=== PATIENT | female | born 1990 | race Caucasian/White ===

== ENCOUNTER 2017-12-01 18:30 | Emergency (ER) | payer MEDICAID, OTHER ==
[~2017-12-01] VITALS: Ht 160 cm; Wt 83.8 kg
[2017-12-01 18:38] VITALS: BP 158/102
[2017-12-01] MEDS ORDERED: normal saline 1000ML IV soln IVB ONE (19:00)
[2017-12-01] MEDS ORDERED: ondansetron/PF 4mg/2ml inj IV ONE (19:00)
[2017-12-01 19:14] LABS: BASOPHILS % (AUTO) 0.4 % (0-1); EOSINOPHILS # (AUTO) 0.2 X10'3 (0-0.9); EOSINOPHILS % (AUTO) 1.6 % (0-6); HEMATOCRIT 38.1 % (35.0-45.0); LYMPHOCYTES # (AUTO) 3.4 X10'3 (1.1-4.8); LYMPHOCYTES % (AUTO) 35.5 % (21-51); MEAN CORPUSCULAR HEMOGLOBIN 28.8 PG (27.0-31.0); MEAN CORPUSCULAR HGB CONC 34.2 % (33.0-36.5); MEAN CORPUSCULAR VOLUME 84.2 FL (78-98); MEAN PLATELET VOLUME 7.8 FL (7.4-10.4); MONOCYTES # (AUTO) 0.8 X10'3 (0-0.9); MONOCYTES % (AUTO) 8.5 % (2-12); NEUTROPHILS # (AUTO) 5.1 X10'3 (1.8-7.7); PLATELET COUNT 424 X10'3 (140-440); RED BLOOD COUNT 4.52 X10'6 (4.20-5.60); WHITE BLOOD COUNT 9.5 X10'3 (4.5-11.0)
[2017-12-01 19:22] LABS: PROTHROMBIN TIME 10.2 SECONDS (9.0-12.0)
[2017-12-01 19:26] LABS: ALANINE AMINOTRANSFERASE 146 U/L (12-78); ALBUMIN 3.8 G/DL (3.4-5.0); ALBUMIN/GLOBULIN RATIO 0.9 (1.1-1.5); ALKALINE PHOSPHATASE 79 IU/L (46-116); AMYLASE 62 U/L (25-115); ANION GAP 6 (8-16); ASPARTATE AMINO TRANSFERASE 69 U/L (10-37); BILIRUBIN,TOTAL 0.3 MG/DL (0.1-1.0); BLOOD UREA NITROGEN 6 MG/DL (7-18); BUN/CREATININE RATIO 6.8 (6.6-38.0); CALCIUM 9.4 MG/DL (8.5-10.1); CHLORIDE 101 MMOL/L (99-107); CREATININE 0.88 MG/DL (0.40-0.90); GLUCOSE 96 MG/DL (70-104); LIPASE 205 U/L (73-393); POTASSIUM 3.7 MMOL/L (3.5-5.1); SODIUM 136 MMOL/L (135-145); TOTAL CARBON DIOXIDE 28.6 MMOL/L (24-32); TOTAL PROTEIN 8.2 G/DL (6.4-8.2); eGFR 78 ML/MIN
[2017-12-01 19:45] LABS: URINE HCG NEGATIVE (NEG)
[2017-12-01 19:49] LABS: COLOR,URINE YELLOW (Yellow); GLUCOSE, URINE NEGATIVE (Neg); KETONES,URINE NEGATIVE (Neg); LEUKOCYTE ESTERASE ,URINE NEGATIVE (Neg); NITRITES, URINE NEGATIVE (Neg); OCCULT BLOOD,URINE NEGATIVE (Neg); PROTEIN,URINE NEGATIVE (Neg); UROBILINOGEN,URINE 0.2 E.U/dL (0.2-1.0)
[2017-12-01 19:54] LABS: CLARITY,URINE TURBID (Clear); UA COLLECTION TYPE CLN CATCH MIDSTREAM
[2017-12-01 19:55] LABS: RBC,URINE NONE SEEN /HPF (0-2); WBC,URINE NONE SEEN /HPF (0-4)
[2017-12-01 19:56] LABS: AMORPHOUS PHOSPHATES 4+; BACTERIA,URINE NONE SEEN /HPF (Neg); MUCUS STRANDS NONE SEEN /LPF (Neg); SQUAMOUS EPITHELIAL CELL,UR MODERATE /LPF (FEW)
[2017-12-01] MEDS ORDERED: ONDA8TAB9 PO (21:14)
[2017-12-02] MEDS ORDERED: PANT-47 PO (12:52)
== END 2017-12-01 21:23 | disposition home or self-care (01) ==
LOC: ER 18:31
DX: K29.70 Gastritis, unspecified, without bleeding (principal)
CPT/HCPCS: 36415; 71045; 80053; 81001; 81025; 82150; 83690; 85025; 85610; 96361; 96374; 99285; J2405; J7030

== ENCOUNTER 2017-12-02 10:46 | Emergency (ER) | payer MEDICAID, OTHER ==
[~2017-12-02] VITALS: Ht 558.9 cm; Wt 87.5 kg
[~2017-12-02 10:46] MED LIST: ONDA8TAB9 PO
[2017-12-02] MEDS ORDERED: LIDOcaine Viscous 15ml cup PO ONE (11:15)
[2017-12-02] MEDS ORDERED: sucralfate 1 gm tablet PO ONE (11:15)
[2017-12-02] MEDS ORDERED: famotidine 20mg tablet PO ONE (11:15)
[2017-12-02] MEDS ORDERED: mag hydrox/Alum hydrox/simeth 30ml oral suspension PO ONE (11:15)
[2017-12-02 11:51] LABS: ALANINE AMINOTRANSFERASE 340 U/L (12-78); ALBUMIN 3.8 G/DL (3.4-5.0); ALBUMIN/GLOBULIN RATIO 0.8 (1.1-1.5); ALKALINE PHOSPHATASE 87 IU/L (46-116); ANION GAP 10 (8-16); ASPARTATE AMINO TRANSFERASE 243 U/L (10-37); BILIRUBIN,TOTAL 0.5 MG/DL (0.1-1.0); BLOOD UREA NITROGEN 5 MG/DL (7-18); BUN/CREATININE RATIO 6.2 (6.6-38.0); CALCIUM 9.2 MG/DL (8.5-10.1); CHLORIDE 104 MMOL/L (99-107); CREATININE 0.81 MG/DL (0.40-0.90); GLUCOSE 128 MG/DL (70-104); POTASSIUM 3.9 MMOL/L (3.5-5.1); SODIUM 139 MMOL/L (135-145); TOTAL CARBON DIOXIDE 25.5 MMOL/L (24-32); TOTAL PROTEIN 8.3 G/DL (6.4-8.2); eGFR 86 ML/MIN
[2017-12-02] MEDS ORDERED: PANT-47 PO (12:52)
[2017-12-02 13:00] VITALS: BP 127/91
== END 2017-12-02 13:02 | disposition home or self-care (01) ==
LOC: ER 10:46
DX: R74.0 Nonspecific elevation of levels of transaminase and lactic acid dehydrogenase [LDH] (principal); R10.10 Upper abdominal pain, unspecified; R10.13 Epigastric pain; R11.2 Nausea with vomiting, unspecified; Z79.899 Other long term (current) drug therapy
CPT/HCPCS: 36415; 76700; 80053; 99285

== ENCOUNTER 2018-10-26 19:55 | Emergency (ER) | payer MEDICAID, OTHER ==
[~2018-10-26] VITALS: Ht 160 cm; Wt 78.6 kg
[~2018-10-26 19:55] MED LIST changes: +PANT-47 PO
[2018-10-26 20:02] VITALS: BP 144/103
== END 2018-10-26 21:46 | disposition left against medical advice (07) ==
LOC: ER 19:56
DX: R10.9 Unspecified abdominal pain (principal); R11.10 Vomiting, unspecified; Z53.21 Procedure and treatment not carried out due to patient leaving prior to being seen by health care provider